=== PATIENT | female | born 1945 | race Caucasian/White ===

== ENCOUNTER 2018-09-27 12:07 | Emergency (ER) | payer MEDICARE ==
[~2018-09-27] VITALS: Ht 162.6 cm; Wt 81.7 kg
[~2018-09-27 12:07] MED LIST: ACETAMINOPHEN-1 EAC1 PO; BENZONATATE100 MG PO; CARAFATE 1 GM TA1 G1 PO; FISH OIL 1,001000 M1 PO; FLEXERIL; FLEXERIL PO; FLONASE 0.05%50 MCG NASAL; GABAPENTIN 100100 MG PO; HEARTBURN TREAT15 MG PO; LEVAQUIN 500 M500 MG PO; LEVAQUIN 750 M750 MG PO; NEURONTIN 300300 M1 PO; NEXIUM 40 MG CA40 M1 PO; PEPCID20 MG PO; PHENERGAN 25 MG25 M1 PO; VITAMIN D3400 UNIT PO; XANAX 0.5 MG0.5 MG PO; ZESTRIL10 MG PO; ZOMIG ZMT5 MG PO; ZPAK PO
[2018-09-27 12:37] LABS: ABSOLUTE EOSINOPHILS 0.2 thou/uL (0.0-0.7); ABSOLUTE LYMPHOCYTES 1.2 thou/uL (0.8-5.3); ABSOLUTE MONOCYTES 0.6 thou/uL (0.0-1.2); ABSOLUTE NEUTROPHILS 4.6 thou/uL (1.6-8.1); BASOPHILS 0.4 %; EOSINOPHILS 3.1 %; HEMATOCRIT 39.8 % (37.0-47.0); LYMPHOCYTES 18.6 %; MCH 29.9 pg (26.0-34.0); MCHC 33.9 g/dL (28.0-37.0); MCV 88.2 fL (80.0-100.0); MONOCYTES 8.7 %; MPV 7.2 fl. (7.2-11.1); NUCLEATED RBCS 0 /100WBC; POLYS 69.2 %; RBC 4.51 mil/uL (4.20-5.00); RDW-CV 13.5 % (10.5-14.5); WBC 6.6 thou/uL (4.0-11.0)
[2018-09-27 12:42] LABS: HEMOGLOBIN 13.5 gm/dL (12.0-15.0); PLATELET COUNT* 282 thou/uL (150-400)
[2018-09-27 12:45] LABS: ANION GAP 9 mmol/L (7-16); BUN 8 mg/dL (7-18); CALCIUM 9.1 mg/dL (8.5-10.1); CHLORIDE 104 mmol/L (98-107); CO2 27 mmol/L (21-32); CREATININE 0.7 mg/dL (0.6-1.3); GLUCOSE 93 mg/dL (70-99); POTASSIUM 3.5 mmol/L (3.5-5.1); SODIUM 140 mmol/L (136-145)
[2018-09-27 12:51] LABS: ALBUMIN 3.2 g/dL (3.4-5.0); ALKALINE PHOSPHATASE 79 U/L (46-116); LIPASE 134 U/L (73-393); SGOT 20 U/L (15-37); SGPT 28 U/L (30-65); TOTAL BILIRUBIN 0.3 mg/dL (<0.1-1.0); TOTAL PROTEIN 6.8 g/dL (6.4-8.2); TROPONIN-I LEVEL <0.06 ng/mL (<0.06)
[2018-09-27] MEDS ORDERED: ZOFRAN ODT4 MG DISSOLVE (14:40)
[2018-09-27] MEDS ORDERED: PHENERGAN 25 MG25 M1 PO (14:40)
[2018-09-27 14:52] VITALS: BP 162/100
--- NOTE | 2018-09-27 15:01 | EKG ---
[place] [address] ELECTROCARDIOGRAM REPORT Name: CHRIS FLYNN Room: [facility]#: [id number] Admission: 09/27/18 Attend Phys: Discharge: Date of : 47 Report #: [id number] THIS REPORT FOR: //name// [facility] ED Test Date: 2018-09-27 Test Time: 12:52:11 Pat Name: CHRIS FLYNN Department: Room: Gender: F Molecular Physicist: PADMINI : 1945 Requested By: Hank Muhammad Order Number: [id number] MD: Tan Galaviz Measurements Intervals [place] Rate: 93 P: 70 MI: 178 QRS: 16 QRSD: 106 T: 45 QT: 393 QTc: 489 Interpretive Statements Sinus rhythm Low voltage, precordial leads RSR' in V1 or V2, right VCD or RVH Borderline prolonged QT interval Baseline wander in lead(s) I,II,aVR,V4 Compared to ECG 09/23/2018 12:41:26 no change Electronically Signed On 09-27-2018 15:01:31 RETAIL PROPERTY MANAGER by Tan Galaviz [email or web address] <ELECTRONICALLY SIGNED> By: Tan Galaviz MD, FAC 09/27/18 1501 1252 1252 Tan Galaviz MD, [facility] /EPI
== END 2018-09-27 15:14 | disposition home or self-care (01) ==
LOC: M.ERS 12:07
PROVIDERS: Emergency Medicine Emergency Medical Services
DX: R11.2 Nausea with vomiting, unspecified (principal); G43.909 Migraine, unspecified, not intractable, without status migrainosus; I10 Essential (primary) hypertension; K21.9 Gastro-esophageal reflux disease without esophagitis; Z88.1 Allergy status to other antibiotic agents; Z88.6 Allergy status to analgesic agent; Z88.8 Allergy status to other drugs, medicaments and biological substances; Z87.440 Personal history of urinary (tract) infections

== ENCOUNTER 2018-09-30 16:44 | Inpatient (IN) | payer MEDICARE ==
[~2018-09-30] VITALS: Ht 162.6 cm; Wt 80.5 kg
--- NOTE | ~2018-09-30 | PROC ---
[address] [address] PROCEDURE REPORT Name: CHRIS FLYNN Room: [address] IN .R.#: [id number] Admission: 09/30/18 Attend Phys: Shawn Diaz MD Discharge: Date of : 47 Report #: [id number] THIS REPORT FOR: //name// For GI report, please see the Provation report in Perceptive 7 content. By: [id number] Records Staff [facility] /LUNA
[~2018-09-30 16:44] MED LIST changes: +ZOFRAN ODT4 MG DISSOLVE
[2018-09-30 16:54] VITALS: BP 151/91
[2018-09-30] MEDS ORDERED: LEVAQUIN 750 M750 MG PO (17:08)
[2018-09-30] MEDS ORDERED: GABAPENTIN 100100 MG PO (17:08)
[2018-09-30] MEDS ORDERED: LANSOPRAZOLE15 MG PO (17:08)
[2018-09-30] MEDS ORDERED: LISINOPRIL10 MG PO (17:09)
[2018-09-30] MEDS ORDERED: ACETAMINOPHEN-1 EAC1 PO (17:09)
[2018-09-30 17:34] LABS: URINE BLOOD NEGATIVE (Negative); URINE CLARITY CLEAR; URINE COLOR YELLOW; URINE GLUCOSE-RANDOM NEGATIVE (Negative); URINE LEUKOCYTES-REFLEX NEGATIVE (Negative); URINE NITRITE-REFLEX NEGATIVE (Negative); URINE PROTEIN TRACE (Negative); URINE SPECIFIC GRAVITY >= 1.030 (1.005-1.030); URINE UROBILINOGEN 0.2 E.U./dl (0.2-1.0)
[2018-09-30 17:40] LABS: ICTOTEST (BILI CONFIRMATORY) Negative (Negative); URINE BILIRUBIN 2+ (Negative); URINE KETONES 3+ (Negative)
[2018-09-30 17:53] LABS: ABSOLUTE EOSINOPHILS 0.2 thou/uL (0.0-0.7); ABSOLUTE LYMPHOCYTES 1.7 thou/uL (0.8-5.3); ABSOLUTE NEUTROPHILS 4.3 thou/uL (1.6-8.1); BASOPHILS 0.5 %; EOSINOPHILS 2.4 %; LYMPHOCYTES 23.5 %; MCH 29.9 pg (26.0-34.0); MONOCYTES 13.7 %; MPV 7.8 fl. (7.2-11.1); NUCLEATED RBCS 0 /100WBC; PLATELET COUNT* 423 thou/uL (150-400); POLYS 59.9 %; RBC 5.34 mil/uL (4.20-5.00); RDW-CV 13.7 % (10.5-14.5); WBC 7.2 thou/uL (4.0-11.0)
[2018-09-30 18:00] LABS: ANION GAP 14 mmol/L (7-16); BUN 9 mg/dL (7-18); CALCIUM 9.5 mg/dL (8.5-10.1); CHLORIDE 98 mmol/L (98-107); CO2 24 mmol/L (21-32); CREATININE 0.8 mg/dL (0.6-1.3); GLUCOSE 86 mg/dL (70-99); POTASSIUM 3.5 mmol/L (3.5-5.1); SODIUM 136 mmol/L (136-145)
[2018-09-30 18:02] LABS: INR 1.1; PROTIME 11.4 Seconds (9.20-11.50)
[2018-09-30 18:10] LABS: ALBUMIN 3.8 g/dL (3.4-5.0); ALKALINE PHOSPHATASE 82 U/L (46-116); NT-PRO BRAIN NAT PEPTIDE 209 pg/mL (<300); SGOT 14 U/L (15-37); SGPT 31 U/L (30-65); TOTAL BILIRUBIN 0.5 mg/dL (<0.1-1.0); TOTAL PROTEIN 7.9 g/dL (6.4-8.2); TROPONIN-I LEVEL <0.06 ng/mL (<0.06)
[2018-09-30 18:19] LABS: INFLUENZA A ANTIGEN None Detected (None Detect); INFLUENZA B ANTIGEN None Detected (None Detect)
[2018-09-30 20:08] VITALS: BP 135/83
[2018-09-30 20:31] VITALS: BP 128/78
--- NOTE | 2018-09-30 22:31 | NUR ---
PATIENT CAME TO THE FLOOR FROM THE ER IN STABLE CONDITION VIA CART, DAUGHTER WAS WITH PATIENT. ROOM ORIENTATION AND ADMISSION ASSESSMENT DOEN. QUESTIONS ANSWERED FOR PATIENT AND DAUGHTER. CALL LIGHT IS IN REACH, WILL CONTINUE TO MONITOR.
[2018-10-01 00:17] VITALS: BP 141/72
[2018-10-01 04:00] VITALS: BP 136/63
--- NOTE | 2018-10-01 05:35 | NUR ---
PATIENT HAS SLEPT SINCE TAKING MELATONIN AROUND 2200. NO COMPLAINTS OF ANY KIND TONIGHT. VITAL SIGNS STABLE ON ROOM AIR. CALL LIGHT IS IN REACH, BED ALARM ON, WILL CONTINUE TO MONITOR.
[2018-10-01 08:40] VITALS: BP 136/72
--- NOTE | 2018-10-01 12:21 | EKG ---
[place] [address] ELECTROCARDIOGRAM REPORT Name: CHRIS FLYNN Room: [address] ADM IN .R.#: [id number] Admission: 09/30/18 Attend Phys: Shawn Diaz MD Discharge: Date of : 47 Report #: [id number] THIS REPORT FOR: //name// [facility] ED Test Date: 2018-09-30 Test Time: 17:24:33 Pat Name: CHRIS GEE Department: Room: [facility] Gender: F Front End Technician: GRETTA : 1945 Requested By: Kenia Dunbar Order Number: [id number] MD: Tan Galaviz Measurements Intervals [place] Rate: 103 P: 46 TX: 152 QRS: -38 QRSD: 87 T: 32 QT: 359 QTc: 470 Interpretive Statements Sinus tachycardia Inferior infarct, old Consider anterolateral infarct Compared to ECG 09/27/2018 12:52:11 Sinus rhythm no longer present Electronically Signed On 10-01-2018 12:21:30 JOB SERVICE SPECIALIST by Tan Galaviz [email or web address] <ELECTRONICALLY SIGNED> By: Tan Galaviz MD, [facility] 10/01/18 1221 1724 1724 Tan Galaviz MD, [facility] /EPI
[2018-10-01 14:44] LABS: ABSOLUTE EOSINOPHILS 0.1 thou/uL (0.0-0.7); ABSOLUTE LYMPHOCYTES 1.1 thou/uL (0.8-5.3); ABSOLUTE MONOCYTES 0.7 thou/uL (0.0-1.2); ABSOLUTE NEUTROPHILS 5.2 thou/uL (1.6-8.1); BASOPHILS 0.5 %; HEMATOCRIT 41.3 % (37.0-47.0); HEMOGLOBIN 14.1 gm/dL (12.0-15.0); LYMPHOCYTES 15.9 %; MCH 29.8 pg (26.0-34.0); MCHC 34.1 g/dL (28.0-37.0); MCV 87.5 fL (80.0-100.0); MONOCYTES 9.8 %; MPV 7.7 fl. (7.2-11.1); NUCLEATED RBCS 0 /100WBC; PLATELET COUNT* 382 thou/uL (150-400); POLYS 71.8 %; RBC 4.72 mil/uL (4.20-5.00); RDW-CV 13.7 % (10.5-14.5); WBC 7.2 thou/uL (4.0-11.0)
[2018-10-01 16:26] VITALS: BP 151/83
--- NOTE | 2018-10-01 18:11 | NUR ---
PATIENT HAS BEEN A/O X 4 THIS SHIFT. CONTINUES ON TOOL SETTER, TRACING NSR. PATIENT STARTED ON CLEAR LIQUIDS THIS SHIFT. PATIENT SEEN BY GI AND TELEPSYCH. PATIENT TO HAVE EGD IN AM. MEDICAL RECORDS REQUESTED THIS SHIFT ORDERED. UP SBA. FAMILY AT BEDSIDE. CALL LIGHT WITHIN REACH. WILL CONTINUE WITH PLAN OF CARE.
[2018-10-01 19:45] VITALS: BP 128/77
[2018-10-02 04:51] LABS: ALBUMIN 2.9 g/dL (3.4-5.0); CALCIUM 8.4 mg/dL (8.5-10.1); CREATININE 0.6 mg/dL (0.6-1.3); POTASSIUM 3.1 mmol/L (3.5-5.1); TOTAL BILIRUBIN 0.5 mg/dL (<0.1-1.0); TOTAL PROTEIN 5.9 g/dL (6.4-8.2)
--- NOTE | 2018-10-02 05:40 | NUR ---
PATIENT HAS BEEN SLEEPING SINCE TAKING MELATONIN AROUND 2100. BED RAILS UP X2, BED IN LOWEST POSITION, CALL LIGHT WITHIN REACH, EXPRESSES NO NEEDS AT THIS TIME, WILL CONTINUE TO MONITOR.
--- NOTE | 2018-10-02 06:41 | NUR ---
REVIEWED AND AGREE WITH CHARTING BY NGUYỄN ZIEGLER
[2018-10-02 07:48] VITALS: BP 128/77
[2018-10-02 08:30] VITALS: BP 148/92
[2018-10-02 12:00] VITALS: BP 138/73
--- NOTE | 2018-10-02 15:47 | NUR ---
SW met with pt to complete initial assessment, introduce self, and SW role. Pt alert, oriented, talkative. Pt lives at home alone and has support in 2 dtrs. Pt is now active with [facility]; pt had history with [facility] . SW discussed pt recent admissions and possible recommendation for inpt rehab if pt would qualify and/or possibly SNF at dc. Pt said she would be willing to go to rehab for a while if needed. SW to continue to follow to assist with safe dc planning.
[2018-10-02 16:00] VITALS: BP 159/91
--- NOTE | 2018-10-02 18:52 | NUR ---
PATIENT HAS BEEN A/O X 4 THIS SHIFT. CONTINUES ON PRESS LEADER, TRACING NSR. PATIENT HAD EGD AND CT SCAN COMPLETED THIS SHIFT. PATIENT UP SBA WITH WALKER. PARTICIPATED WITH OT/PT TODAY. TO HAVE GASTRIC EMPTYING TEST IN THE AM. PATIENT ATE ABOUT 40% OF DINNER THIS EVENING. POTASSIUM REPLACED. HOURLY ROUNDING COMPLETED. CALL LIGHT WITHIN REACH. WILL CONTINUE WITH PLAN OF CARE.
[2018-10-02 20:00] VITALS: BP 131/86
[2018-10-03 00:33] VITALS: BP 138/66
--- NOTE | 2018-10-03 04:10 | NUR ---
PATIENT SLEPT WELL DURING THIS SHIFT. PT WITH FLUIDS INFUSING IN LT AC PER DR ORDER. PT DENIES PAIN/NAUSEA ON THIS SHIFT. PT UP WITH STANDBY TO BATHROOM. PT IS ALERT/ORIENTED X4, FORGETFUL. PT MADE NPO AT MIDNIGHT FOR GASTRIC EMPTYING TEST TODAY. FREQUENTLY USED ITEMS AND CALL LIGHT WITHIN REACH. SIDERAILS UPX3 AND BED ALARM ON. WILL CONTINUE TO MONITOR.
[2018-10-03 04:20] VITALS: BP 133/84
[2018-10-03 10:49] VITALS: BP 148/78
[2018-10-03 12:08] VITALS: BP 141/87
--- NOTE | 2018-10-03 16:13 | NUR ---
PT PROGRESSING TOWARDS GOALS THIS SHIFT. COMPLETED GASTRIC EMPTYING TEST THAT WAS NORMAL. PT HAD TWO IV'S INFILTRATE THIS SHIFT. INFUSING NURSE STARTED IV WITH ULTRASOUND TO RT FA. IVF INFUSING WITHOUT DIFFICULTY. PT HAD NAUSEA DURING GASTRIC EMPTYING TEST. ORAL ZOFRAN ADMINISTERED THAT WAS EFFECTIVE. PT C/O HEADACHE THIS SHIFT. NOT RELIEVED BY ORAL PRN TYLENOL. GIVEN ONE TIME DOSE HYDROCODONE. NO OTHER CONCERNS AT THIS TIME. CLWR. WCTM.
[2018-10-03 16:59] VITALS: BP 138/72
[2018-10-03 19:45] VITALS: BP 143/74
[2018-10-04] VITALS (8 sets, daily range): BP systolic 114–147; BP diastolic 52–93
[2018-10-04 01:46] LABS: URINE BILIRUBIN NEGATIVE (Negative); URINE BLOOD NEGATIVE (Negative); URINE CLARITY CLEAR; URINE COLOR YELLOW; URINE GLUCOSE-RANDOM NEGATIVE (Negative); URINE KETONES 1+ (Negative); URINE LEUKOCYTES-REFLEX NEGATIVE (Negative); URINE NITRITE-REFLEX NEGATIVE (Negative); URINE PROTEIN NEGATIVE (Negative); URINE SPECIFIC GRAVITY 1.015 (1.005-1.030); URINE UROBILINOGEN 0.2 E.U./dl (0.2-1.0)
[2018-10-04 04:11] LABS: HEMOGLOBIN 12.8 gm/dL (12.0-15.0); MPV 7.9 fl. (7.2-11.1)
[2018-10-04 04:12] LABS: NUCLEATED RBCS 0 /100WBC
[2018-10-04 04:14] LABS: HEMATOCRIT 37.6 % (37.0-47.0); MCHC 34.1 g/dL (28.0-37.0); PLATELET COUNT* 310 thou/uL (150-400); RBC 4.27 mil/uL (4.20-5.00); RDW-CV 13.6 % (10.5-14.5); WBC 22.4 thou/uL (4.0-11.0)
[2018-10-04 04:36] LABS: CALCIUM 8.7 mg/dL (8.5-10.1); CREATININE 0.6 mg/dL (0.6-1.3); MAGNESIUM 1.6 mg/dL (1.8-2.4); POTASSIUM 3.3 mmol/L (3.5-5.1)
--- NOTE | 2018-10-04 05:19 | NUR ---
PT SLEPT MOST OF SHIFT. ASSESSMENT DOCUMENTED. MEDS GIVEN PER E-OCT. IV PATENT, FLUIDS INFUSING. NO REPORTS OF PAIN OR NAUSEA THIS SHIFT. PT REPORTED HEARTBURN AND REQUESTED MEDICATION, NOTIFIED, ORDERS RECIEVED. PT UP TO BATHROOM WITH SBA AND WALKER. UA OBTAINED. HEART MONITOR READING ST THIS SHIFT. WILL CONTINUE WITH PLAN OF CARE.
[2018-10-04 06:16] LABS: ABSOLUTE EOSINOPHILS 0.2 thou/uL (0.0-0.7); ABSOLUTE LYMPHOCYTES 0.9 thou/uL (0.8-5.3); ABSOLUTE MONOCYTES 1.6 thou/uL (0.0-1.2); ABSOLUTE NEUTROPHILS 19.7 thou/uL (1.6-8.1); GIANT PLATELETS OCCASIONAL; PLATELET ESTIMATE ADEQUATE
[2018-10-04 06:17] LABS: ANISOCYTOSIS 1+; POIKILOCYTOSIS 1+
--- NOTE | 2018-10-04 11:08 | PATH ---
[address] [place] [address] PATHOLOGY RPT PROCEDURE Name: CHRIS FLYNN Room: [address] IN .R.#: [id number] Admission: 09/30/18 Date of : 47 Discharge: Report #: [id number] Path Case #: [id number] [facility] Accession Number: [id number] . 01 Material submitted: . ANTRAL NODULE BIOPSIES . 01 Clinical history: . None provided . 02 Diagnosis: Antral nodule, biopsy: - Mild chronic antral gastritis, typical of reactive gastropathy (chemical gastritis), with focal intestinal metaplasia, negative for Helicobacter pylori organisms and dysplasia. . (TOPHER:palmer; 10/03/2018) QL/10/03/2018 . 02 Comment: Special stain: H. pylori immuno. . (TOPHER:palmer; 10/03/2018) . 02 Electronically signed: . Cash Lilly MD, Pathologist NPI- [id number] . 01 Gross description: . Received in formalin labeled "KoltonCherylChris, antral nodule biopsy," and additionally labeled on the requisition as "biopsys," are 2 segments of celis soft tissue measuring 0.9 x 0.3 x 0.2 cm in aggregate dimensions and ranging from 0.4 to 0.5 cm in maximum dimension. The specimen is submitted entirely in cassette A1. (TSD; 10/02/2018) TOB/TOB . 02 Pathologist provided ICD-10: K29.50 . 02 CPT . 867829, M21361 Specimen Comment: A courtesy copy of this report has been sent to Specimen Comment: [phone], . Specimen Comment: Report sent to / DR NO Specimen Comment: A duplicate report has been generated due to demographic updates. Performed at: [address] [place] [address] PATHOLOGY RPT PROCEDURE Name: CHRIS FLYNN Room: [address] IN [facility]#: [id number] Admission: 09/30/18 Date of : 47 Discharge: Report #: [id number] Path Case #: [id number] [facility] Oli Rosas [address] [place] [address] [address], [place], [place] [id number] MD Lazaro Owens MD Phone: [phone] Performed at: [facility] [place] [facility] Susan Lowry, [place], [place] [id number] MD Cash Lilly MD Phone: [phone]
--- NOTE | 2018-10-04 16:00 | NUR ---
SURGICAL SUPPLIES STERILIZER SPOKE TO THE PATIENT'S DTR JAMILAH TO DISCUSS DISCHARGE PLANNING AND NEED TO CHOSE SNF PLACEMENT. PATIENT'S DTR INFORMS THAT SHE WOULD LIKE VISIT THE FACILITIES WITH HER SISTER PRIOR TO MAKING A DECISION. D/C BUSINESS ENTERPRISE OFFICER PROVIDE THE PATIENT'S DTR WITH SNF LIST. CM WILL REMAIN AVAILABLE TO ASSIST AND FOLLOW NEEDED.
--- NOTE | 2018-10-04 17:31 | NUR ---
PATIENT RESTED MOST OF THE DAY. LEFT FLOOR FOR AN XRAY, RETURNED TO FLOOR. PATIENT WAS NAUSEOUS ALL DAY, VOMITTED AFTER MORNING MEDS. PATIENT IN BED, BED IN LOWEST POSITION, SIDERAILS UP X3, CALL LIGHT WITHIN REACH, VOICES NO NEEDS AT THE MOMENT, WILL CONTINUE TO MONITOR.
--- NOTE | 2018-10-04 18:51 | NUR ---
REVIEWED AND AGREE WITH CHARTING BY NGUYỄN ZIEGLER.
[2018-10-05 00:30] VITALS: BP 141/85
[2018-10-05 04:30] VITALS: BP 141/83
--- NOTE | 2018-10-05 05:04 | NUR ---
PATIENT SLEPT OFF AND ON DURING THIS SHIFT. PT DRY HEAVING DURING THE NIGHT; PO ZOFRAN GIVEN. PT ABLE TO RETURN TO SLEEP AFTERWARDS. PT WITH FLUIDS INFUSING IN RT FOREARM PER ORDER. PT SR ON APPLICATIONS CHEMIST. PT USES CALL LIGHT APPROPRIATELY FOR ASSISTANCE TO BATHROOM. PT IS UP WITH WALKER AND STANDBY ASSIST. PT DENIES NEEDS AT THIS TIME. FREQUENTLY USED ITEMS AND CALL LIGHT WITHIN REACH. SIDERAILS UPX2. WILL CONTINUE TO MONITOR.
[2018-10-05 06:17] LABS: ABSOLUTE BASOPHILS 0.1 thou/uL (0.0-0.2); ABSOLUTE LYMPHOCYTES 0.9 thou/uL (0.8-5.3); ABSOLUTE MONOCYTES 0.5 thou/uL (0.0-1.2); BASOPHILS 0.6 %; EOSINOPHILS 0.4 %; HEMATOCRIT 37.1 % (37.0-47.0); HEMOGLOBIN 12.7 gm/dL (12.0-15.0); LYMPHOCYTES 10.3 %; MCH 30.3 pg (26.0-34.0); MCHC 34.3 g/dL (28.0-37.0); MCV 88.2 fL (80.0-100.0); MONOCYTES 5.7 %; MPV 8.2 fl. (7.2-11.1); NUCLEATED RBCS 0 /100WBC; PLATELET COUNT* 316 thou/uL (150-400); RDW-CV 14.2 % (10.5-14.5); WBC 8.4 thou/uL (4.0-11.0)
[2018-10-05 06:35] LABS: CALCIUM 8.3 mg/dL (8.5-10.1); CREATININE 0.6 mg/dL (0.6-1.3); POTASSIUM 3.8 mmol/L (3.5-5.1)
[2018-10-05 07:55] VITALS: BP 131/69
--- NOTE | 2018-10-05 12:02 | NUR ---
NURSING COLOR RECEIVER STARTED THE PROCESS OF TRANSFERRING TO . SPOKE WITH THEM A COUPLE TIMES. INFORMATION FAXED PER THEIR REQUEST. AT THIS TIME, THEY ARE DECLINING BECAUSE THEY ARE AT CAPACITY. PATIENT'S NURSE NOTIFIED.
[2018-10-05 12:44] VITALS: BP 109/58
--- NOTE | 2018-10-05 13:11 | NUR ---
SW was informed of pt request for transfer to and that was unable to accept pt transfer but that pt family would request transfer to [facility]. SW called [facility] and initiated transfer request, they will not consider until they have copies of pt insurance cards, SW sent face sheet but they still are requiring copies of pt insurance cards and pt dtr said she would go home to get pt cards to provide to transfer team at [facility]. [facility] and [facility] have possibilities for a bed but [facility] not have any beds. Pt[facility]family prefer [facility] if [facility]. SW to continue to follow to assist with safe dc planning/possible transfer.
[2018-10-05 17:05] VITALS: BP 126/75
--- NOTE | 2018-10-05 17:30 | NUR ---
PATIENT RESTING IN BED. PATIENT HAS COMPLAINTS OF HEADACHE AND NAUSEA, PHENERGAN AND TYLENOL GIVEN. PATIENT HAD BOUT OF DIARRHEA THIS EVENING BUT IT WAS INCONTINENT EPISODE AND UNABLE TO COLLECT SAMPLE. PATIENT HAS POOR APPETITE BUT DID NOT VOMIT TODAY. PATIENT AWAITING BED AT [facility], WILL AWAIT BED ASSISGNMENT.
--- NOTE | 2018-10-05 19:15 | NUR ---
PATIENT TRANSFERED TO [facility] AT THIS TIME. REPORT GIVEN TO ERNESTINE. PATIENT LEFT BY EMS AT THIS TIME. COPY OF CHART GIVEN TO JAYE.
--- NOTE | 2018-10-07 22:57 | CON ---
[address] [address] CONSULTATION Name: CHRIS FLYNN Room: [address] IN M.R.#: [id number] Admission: 09/30/18 Attend Phys: Shawn Diaz MD Discharge: 10/05/18 Date of : 47 Report #: [id number] THIS REPORT FOR: //name// CC: FAM physician/PCP Leonard Diaz MD DATE OF SERVICE: 10/01/2018 REFERRING PHYSICIAN: Shawn Diaz MD REASON FOR CONSULTATION: Persistent nausea. IMPRESSION: 1. Anorexia with early satiety and persistent nausea with poor oral intake. 2. Recent pneumonia, treated with antibiotics. 3. Gastroesophageal reflux disease with history of previous hiatal hernia repair and probable fundoplication of some sort at [facility] in the remote past. 4. Chronic constipation with recent colonoscopy being done within the last year by consultants in Gastroenterology. 5. History of migraines, but no history of nonsteroidal use as she is intolerant to the same. RECOMMENDATIONS: 1. We will have the patient continue with clear-liquid diet at this point in time. 2. We will proceed with upper endoscopy tomorrow morning and upon revealing, a gastric emptying scan to be done on Tuesday. 3. Request records from consultants in Gastroenterology regarding previous colonoscopy for my review. 4. The patient is markedly dehydrated with hemoconcentration, will need to continue with IV fluids at this point in time. 5. Await tele psych consultation as well. HISTORY OF PRESENT ILLNESS: The patient is a very pleasant 73-year-old white female, retired from [facility]'s [employer] in [place], [place], who was admitted to hospital with complaints of anorexia, fatigue and weakness. She was recently hospitalized here for pneumonia, was treated with antibiotics with the same, who has just not done well since being discharged. She states that prior to her last hospital stay, she was doing well with eating and drinking without any complaints of any problems with eating or drinking. She does have a problem with chronic heartburn, for which she takes famotidine and Pepcid before meals. She has history of previous hiatal hernia repair with probable fundoplication at [facility] [place] [address] CONSULTATION Name: CHRIS FLYNN Room: [address] IN ..#: [id number] Admission: 09/30/18 Attend Phys: Shawn Diaz MD Discharge: 10/05/18 Date of : 47 Report #: [id number] a large paraesophageal hernia or hiatal hernia, but she cannot recall the same. She denies any complaints of dysphagia, odynophagia, but has had problem with reflux, which is well controlled with taking famotidine at this time. She denied any problem with or vomiting at all, just not had any appetite. She gets full very quickly. She does feel as if things do not go down as well as they should and with her previous exposure to antibiotics, she recently developed a yeast infection. She has no real complaints of any abdominal pain. She has tendency towards chronic constipation as it is and this is nothing new for her. She does not take anything to help with the same, but does drink coffee and this appears to work fairly well for her. She underwent a colonoscopy last year by consultants in Gastroenterology and had to undergo 2 separate exams because of her bowel prep was poor at the first time and was not even that great at the second time, but it was felt it was good enough for her not have another colonoscopy for about 5 years. She has not been having any bleeding at all or weight loss. She has not had any fevers or chills. She is admitted to the hospital because of issues with the same. ALLERGIES: HYDROMORPHONE, PAROXETINE and she also has one ANTIBIOTIC that gives her trouble. MEDICATIONS: At home include gabapentin, lisinopril, alprazolam, vitamin D, famotidine, and it is unclear whether or not she still takes lansoprazole or not because she did not really say so. She had been on some Levaquin for her pneumonia. PAST MEDICAL AND SURGICAL HISTORY: Remarkable for history of hypertension, reflux, sinus infections. Does have problems with anxiety and mild depression. She has had previous surgery for Dupuytren contractures. She had bilateral breast reduction; still has her gallbladder, appendix. She also had a hiatal hernia repair as I mentioned above. SOCIAL HISTORY: She does not smoke or drink. FAMILY HISTORY: Remarkable for lung cancer. PHYSICAL EXAMINATION: GENERAL: Revealed a pleasant 73-year-old, white female who is in no distress. CARDIOPULMONARY: Revealed a regular rate and rhythm. LUNGS: Clear. ABDOMEN: Soft. She is mildly tender in epigastric area. No rebound or guarding noted. LABORATORY DATA: From yesterday revealed a white count 7.2; hemoglobin 16.0; platelet count 423,000; MCV is 88 and RDW is 13.7. Sodium 136, potassium 3.5, chloride 98, bicarbonate 24, BUN 9, creatinine 0.8, GFR is 71. Total bilirubin 0.5, alkaline phosphatase 82, AST 14, ALT 31, albumin is 3.8. Protime is 11.[address] [address] CONSULTATION Name: CHRIS FLYNN Room: [address] IN M.R.#: [id number] Admission: 09/30/18 Attend Phys: Shawn Diaz MD Discharge: 10/05/18 Date of : 47 Report #: [id number] with an INR of 1.0. By comparison when the patient was discharged from the hospital on the , her hemoglobin was 13.5, so she is markedly hemoconcentrated. TSH from last hospital stay was 0.88 and B12 663. The patient has not had any abdominal x-rays ultrasounds, CAT scans of her abdomen. DISCUSSION: At the present time, the patient has had some problem with anorexia and does not have much of an appetite. We will proceed with upper endoscopy tomorrow and gastric emptying scan the following day as long as everything looks good. I have discussed the plans with the patient as well and she is agreeable to the same. If she continues to have problems, we will set her up for a CT scan of the abdomen and pelvis, oral and IV contrast. <ELECTRONICALLY SIGNED> By: Kings Mckay DO 10/07/18 2257 1130 1335Kings Mckay DO /nt
== END 2018-10-05 19:15 | disposition short-term general hospital (02) | DRG 392 ==
LOC: M.ERS 16:44 → M.TBA-ER 19:07 → M.3W 19:07
PROVIDERS: Internal Medicine Gastroenterology; Nurse Practitioner Family; ADMIT Family Medicine
PROC: 0DB68ZX Excision of Stomach, Via Natural or Artificial Opening Endoscopic, Diagnostic (ICD-10-PCS; principal; 2018-10-02)
DX: K52.9 Noninfective gastroenteritis and colitis, unspecified (principal); K29.70 Gastritis, unspecified, without bleeding; E86.0 Dehydration; K21.0 Gastro-esophageal reflux disease with esophagitis; G43.909 Migraine, unspecified, not intractable, without status migrainosus; I10 Essential (primary) hypertension; K59.09 Other constipation; G89.29 Other chronic pain; M54.9 Dorsalgia, unspecified; K31.7 Polyp of stomach and duodenum; K44.9 Diaphragmatic hernia without obstruction or gangrene; E87.6 Hypokalemia; E83.42 Hypomagnesemia; R68.81 Early satiety; Z88.6 Allergy status to analgesic agent; Z88.8 Allergy status to other drugs, medicaments and biological substances; Z80.1 Family history of malignant neoplasm of trachea, bronchus and lung